=== PATIENT | female | born 1995 | race African-American/Black ===

== ENCOUNTER 2021-07-23 16:26 | Emergency (ER) | payer MEDICAID ==
[~2021-07-23] VITALS: Ht 165.1 cm; Wt 59.0 kg
[2021-07-23] MEDS ORDERED: HYDROCODONE/ACETAMINOPHEN 5/325MG TABLET PO ONE (17:30)
[2021-07-23] MEDS ORDERED: IBUPROFEN 600MG TABLET PO ONE (17:45)
[2021-07-23] MEDS ORDERED: IBUP-2028 MT (18:52)
[2021-07-23 19:16] VITALS: BP 135/65
== END 2021-07-23 19:17 | disposition home or self-care (01) ==
LOC: ER 16:26
DX: M25.561 Pain in right knee (principal); Z88.0 Allergy status to penicillin
CPT/HCPCS: 73564; 99283